=== PATIENT | female | born 1965 | race Caucasian/White ===

== ENCOUNTER 2018-08-12 21:32 | Emergency (ER) | payer SELFPAY, OTHER | END 2018-08-12 22:49 | disposition left against medical advice (07) | LOC: FTE 21:32 | DX: Z53.21 Procedure and treatment not carried out due to patient leaving prior to being seen by health care provider (principal) ==

== ENCOUNTER 2018-08-13 13:13 | Emergency (ER) | payer BC | END 2018-08-13 16:02 | disposition home or self-care (01) | LOC: FTE 13:13 | DX: N93.9 Abnormal uterine and vaginal bleeding, unspecified (principal); Z87.42 Personal history of other diseases of the female genital tract | CPT/HCPCS: 99283 ==